=== PATIENT | female | born 2005 | race Caucasian/White ===

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

== ENCOUNTER 2025-04-05 06:08 | Day surgery (SDC) | payer OTHER ==
[~2025-04-05] VITALS: Ht 152.4 cm; Wt 90.7 kg
[~2025-04-05 06:08] MED LIST: dexAMETHasone 4 MG/ML 1 ML VIAL IV ONE
[2025-04-05] MEDS ORDERED: LR 1,000 ML IV SCH ×2 (06:20→08:35)
[2025-04-05] MEDS ORDERED: dexAMETHasone 4 MG/ML 1 ML VIAL As Ordered ONE (06:55)
[2025-04-05] MEDS ORDERED: LIDOCAINE 2% 100 MG/5 ML SDV (FOR ANES.) As Ordered ONE (06:55)
[2025-04-05] MEDS ORDERED: SUGAMMADEX SODIUM 500 MG/5 ML VIAL As Ordered ONE (06:55)
[2025-04-05] MEDS ORDERED: ROCURONIUM BROMIDE 50MG/5ML VIAL As Ordered ONE (06:55)
[2025-04-05] MEDS ORDERED: ONDANSETRON 4MG 2ML VIAL As Ordered ONE (06:55)
[2025-04-05] MEDS ORDERED: dexmedeTOMIDine (4 MCG/ML) 200 MCG/50 ML BTL As Ordered ONE (06:56)
[2025-04-05] MEDS ORDERED: MIDAZOLAM INJ 2 MG/2 ML VIAL As Ordered ONE (07:01)
[2025-04-05] MEDS: OXYMETAZOLINE 0.05% NASAL SPRAY As Ordered ONE (07:45)
[2025-04-05] MEDS: AMPICILLIN SOD/SULBACTAM SOD 3 GM in D5W MINI-BAG 100 ML IV ONE (07:50)
[2025-04-05] MEDS ORDERED: ACETAMINOPHEN 1000MG/100ML IV BAG As Ordered ONE (07:52)
[2025-04-05] MEDS: CHLORHEXIDINE GLUCONATE 0.12% 15 ML UDC As Ordered ONE (08:01)
[2025-04-05] MEDS ORDERED: HYDROMORPHONE HCL 0.5 MG/0.5 ML SYRINGE IV PRN (08:35)
[2025-04-05 10:10] VITALS: BP 112/60; TEMP 97.2; O2SAT 99
== END 2025-04-05 10:12 | disposition home or self-care (01) ==
LOC: M SDC 06:08
PROVIDERS: ATTEND Dentist
DX: K02.9 Dental caries, unspecified (principal)
CPT/HCPCS: 36415; 81025; 88300; D7210; D9223; J0131; J0295; J0666; J1100; J2250; J2405; J3010